=== PATIENT | male | born 1975 | race Hispanic/Latino ===

== ENCOUNTER → 2020-10-14 | Outpatient (CLI) | payer OTHER | END | disposition home or self-care (01) | LOC: RAH 15:05 | PROVIDERS: ATTEND Internal Medicine Cardiovascular Disease | DX: Z13.6 Encounter for screening for cardiovascular disorders (principal) | CPT/HCPCS: 75571 ==

== ENCOUNTER → 2024-08-01 | Outpatient (CLI) | payer BC ==
--- NOTE | 2024-08-04 07:55 | HMCSR ---
APPROVED REPORT EXAM: Two-dimensional and M-mode echocardiogram with Doppler and color Doppler. INDICATION ICD: R06.09 Other forms of dyspnea Chest Pain 2D Dimensions RVDd4.6 cmLVEF(%)67.6 (>50%)LVED Vol(simp.)136.0 mL IVSd1.1 (0.7-1.1cm)FS(%)38 %LVES Vol(simp.)59.0 mL LVDd4.8 (3.8-5.6cm)Ao Root(2D)3.6 (2.0-3.7cm)LVEF(%, simp.)57 % PWd1.1 (0.7-1.1cm)LVOT diam2.2 (1.8-2.4cm)LA ESV INDEX (BP)29.23 mL/m2 LVDs3.0 (2.5-4.0cm)IVC diam1.6 cm Aortic Valve AoV Vmax1.2 m/Ml Peak GR5.7 mmHgLVOT Vmax1.0 m/s AoV VTI0.2 mAo Mean GR3.2 mmHgLVOT VTI0.20 m SHAUN (VMAX)3.2 cm2AVA (VTI) 3.2 cm2 Mitral Valve MV E Vmax81.6 cm/sDECEL Wkhk226 ms MV A Vmax49.7 cm/sP 1/2 T47 ms E/A ratio1.6MVA (PHT)4.7 cm2 MR Max PG38 mmHg TDI E/E' Medial9.8E/E' Pwjtbzm03.2 Pulmonary Valve PV Vmax1.0 m/sPV VTI0.23 m PV Peak GR4.4 mmHgPI End Nabila. Marco 0.9 cm/s Tricuspid Valve TR Vmax2.4 m/sRAP (EST) 3 chEtQAZY37.9 mmHg TR Peak GR23.9 mmHg Left Ventricle The left ventricle structure and function is normal. There is normal LV segmental wall motion. There is mild left ventricular hypertrophy. LVEF is 55-60%. Left ventricular filling pattern is normal for age. Right Ventricle The right ventricle is moderately dilated. The right ventricular systolic function is normal. Atria The left atrium size is normal. The right atrium size is normal. Aortic Valve Aortic valve is trileaflet. Aortic valve leaflets are sclerotic but open well. No aortic regurgitatio n is present. There is no aortic valvular stenosis. Mitral Valve Mitral valve leaflets are mildly sclerotic but open well. Mitral regurgitation is trace. There is no mitral valve stenosis. Tricuspid Valve The tricuspid valve leaflets appear normal. There is trace tricuspid regurgitation. Pulmonic Valve The pulmonic valve leaflets are thin and pliable; valve motion is normal. There is trace to mild valv ular regurgitation. Great Vessels The aortic root is normal in size. The IVC is normal in size and collapses >50% with inspiration. Pericardium No pericardial effusion. Conclusion LVEF is 55-60%. There is normal LV segmental wall motion. Left ventricular filling pattern is normal for age. The right ventricle is moderately dilated. No aortic regurgitation is present. Mitral valve leaflets are mildly sclerotic but open well. No pericardial effusion.
--- NOTE | 2024-08-07 07:49 | HMCSR ---
APPROVED REPORT Laterality: Bilateral Indications I65.23 Doppler Spectral Velocity Analysis PSV / EDVPSV / EDV ECA (R) 72 / cm/sECA (L) 104 / cm/s dICA (R) 69 / 33 cm/sdICA (L) 56 / 23 cm/s Jing (R) 63 / 20 cm/smICA (L) 56 / 23 cm/s pICA (R) 67 / 22 cm/spICA (L) 73 / 20 cm/s dCCA (R) 64 / 25 cm/sdCCA (L) 57 / 17 cm/s mCCA (R) 80 / 18 cm/smCCA (L) 79 / 24 cm/s pCCA (R) 120 / 26 cm/spCCA (L) 123 / 30 cm/s Vert (R) 40 / cm/sVert (L) 51 / cm/s Subl. (R) 162 / cm/sSubl. (L) 114 / cm/s ICA/CCA 0.57ICA/CCA 0.59 Technologist Impression Minimal plaque noted in the bilateral carotids, without hemodynamic significance. Bilateral vertebral arteries appear antegrade. Conclusion Minimal plaque noted in the bilateral carotids, without hemodynamic significance. Bilateral vertebral arteries appear antegrade. Conclusion Minimal plaque noted in the bilateral carotids, without hemodynamic significance. Bilateral vertebral arteries appear antegrade.
== END | disposition home or self-care (01) ==
LOC: SHCH 08:25
PROVIDERS: ATTEND Internal Medicine Cardiovascular Disease
DX: I08.8 Other rheumatic multiple valve diseases (principal); I65.23 Occlusion and stenosis of bilateral carotid arteries; R06.09 Other forms of dyspnea; R07.9 Chest pain, unspecified
CPT/HCPCS: 93306; 93880

== ENCOUNTER → 2024-10-03 | Outpatient (CLI) | payer BC ==
[2024-10-03 12:32] LABS: CREATININE 1.2 mg/dL (0.5-1.3); POTASSIUM 4.2 mmol/L (3.5-5.1)
== END | disposition home or self-care (01) ==
LOC: LAB 08:02
PROVIDERS: ATTEND Internal Medicine Cardiovascular Disease
DX: I25.110 Atherosclerotic heart disease of native coronary artery with unstable angina pectoris (principal)
CPT/HCPCS: 36415; 80048